=== PATIENT | male | born 1990 | race Two or more races ===

== ENCOUNTER 2020-10-23 23:55 | Emergency (ER) | payer MEDICAID, OTHER ==
[~2020-10-23] VITALS: Ht 167.6 cm; Wt 68.0 kg
[2020-10-24 00:51] VITALS: BP 124/83
== END 2020-10-24 04:02 | disposition left against medical advice (07) ==
LOC: ER 23:55
DX: M25.511 Pain in right shoulder (principal); R05 Cough; Z53.21 Procedure and treatment not carried out due to patient leaving prior to being seen by health care provider
CPT/HCPCS: 71046; 73030